=== PATIENT | female | born 1960 | race Caucasian/White ===

== ENCOUNTER 2021-06-12 07:32 | Emergency (ER) | payer OTHER ==
[2021-06-12 08:32] LABS: Absolute Lymphocytes (CBC) 1.6 K/uL (0.7-4.9); Basophils % 0.5 % (0-1.3); Hematocrit 40.4 % (36.0-45.0); Lymphocytes % 20.3 % (15.3-44.8); MPV 7.6 fL (7.6-11.3); RBC Red Blood Cell Count 4.43 M/uL (3.86-4.86)
[2021-06-12 08:38] LABS: Albumin 3.9 g/dL (3.4-5.0); Bilirubin Direct 0.1 mg/dL (0-0.2); Bilirubin Total 0.4 mg/dL (0.2-1.0); Potassium 3.8 mmol/L (3.5-5.1); Protein, Total 6.9 g/dL (6.4-8.2)
[2021-06-12] MEDS ORDERED: ONDANSETRON 4 MG/2 ML VIAL ONE (08:41)
[2021-06-12] MEDS ORDERED: MORPHINE 4 MG/ML SYR ONE (08:41)
[2021-06-12] MEDS ORDERED: NA CHLORIDE 0.9% 1,000 ML ONE (08:41)
--- NOTE | 2021-06-12 08:55 | RAD REPORT ---
EXAM DESCRIPTION: CT - Stone Protocol - 06/12/2021 8:10 am CLINICAL HISTORY: Abdominal pain. Left flank pain COMPARISON: 2015 TECHNIQUE: Computed axial tomography of the abdomen pelvis was obtained without oral or IV contrast. Lack of IV and oral contrast limits evaluation of solid organs, bowel, and vessels. Coronal reformat oskar images were obtained and reviewed. All CT scans are performed using dose optimization technique as appropriate and may include automated exposure control or mA/KV adjustment according to patient size. FINDINGS: Mild left hydronephrosis. A renal calculus is not seen. An ureteral calculus is not noted. A bladder calculus is not present. 3 millimeter bladder calculus. Additional 2 millimeter bladder ca lculus. Small hepatic cyst Spleen, pancreas and adrenals appear grossly normal There is no evidence of diverticulitis. The appendix appears normal Hysterectomy IMPRESSION: Mild left hydronephrosis and mild left hydroureter may be secondary to recently passed c alculi that now lie within the bladder
[2021-06-12 10:00] LABS: Urine Blood 3+ (Negative); Urine Glucose Negative (Negative); Urine Protein Negative (Negative)
--- NOTE | 2021-06-12 12:02 | EDPHYS ---
Physician Documentation [facility] [place] Name: Alka Spears Age: 60 yrs Sex: Female : 1960 Arrival Date: 06/12/2021 Time: 07:34 Bed 11 Private MD: Mamadou Vieyra B ED Physician Alvarado Mcknight HPI: 06/12 08:39 This 60 yrs old Female presents to ER via Ambulatory with complaints of pm1 Possible Kidney Stone. 08:39 The patient complains of pain in the left low back. Location: Left lower quadrant. pm1 Onset: The symptoms/episode began/occurred this morning. Modifying factors: The symptoms are alleviated by nothing. the symptoms are aggravated by nothing. Associated signs and symptoms: Pertinent positives: dysuria, That has improved, Pertinent negatives: fever, nausea, vomiting. Severity of pain: in the emergency department the pain has improved. The patient has experienced a previous episode, and the symptoms today are exactly the same, To prior kidney stones. The patient has been recently seen by a physician: with different complaint(s), Patient was seen by PCP for upper abdominal has been going on for multiple months. Patient got an ultrasound with incidental finding for hydronephrosis. This morning presenting with left flank pain and left groin pain that is similar to prior kidney stones. Patient reports some dysuria that started Saturday that has improved. Historical: - Allergies: 07:46 No Known Allergies; ss - Home Meds: 07:46 Lipitor 10 mg Oral tab 1 tab once daily [Active]; Estradiol Oral [Active]; ss - PMHx: 07:46 Hyperlipidemia; Hypertension; Kidney stone; ss - PSHx: 07:46 Bladder lift; hysterectomy; ss - Immunization history:: Adult Immunizations up to date, Client reports receiving the 2nd dose of the Covid vaccine. - Social history:: Smoking status: Patient denies any tobacco usage or history of. ROS: 08:39 Constitutional: Negative for fever, chills, and weight loss, Cardiovascular: Negative pm1 for chest pain, palpitations, and edema, Respiratory: Negative for shortness of breath, cough, wheezing, and pleuritic chest pain. 08:39 MS/Extremity: Negative for injury and deformity, Skin: Negative for injury, rash, and discoloration. 08:39 Abdomen/GI: Positive for abdominal pain, of the left lower quadrant, Negative for nausea, vomiting, and diarrhea. 08:39 Back: Positive for flank pain, on the left. 08:39 : Positive for burning with urination. 08:39 All other systems are negative. Exam: 08:39 Constitutional: This is a well developed, well nourished patient who is awake, alert, pm1 and in no acute distress. Head/Face: Normocephalic, atraumatic. 08:39 Skin: Warm, dry with normal turgor. Normal color with no rashes, no lesions, and no evidence of cellulitis. MS/ Extremity: Pulses equal, no cyanosis. Neurovascular intact. Full, normal range of motion. 08:39 Eyes: Exam is negative for acute changes, Periorbital structures: appear normal, Extraocular movements: intact throughout, Sclera: no acute changes, icterus, is not appreciated. 08:39 ENT: Exam is negative for acute changes, Mouth: Lips: normal, moist, Oral mucosa: normal, pink and intact, moist. 08:39 Cardiovascular: Exam negative for acute changes, Rate: tachycardic, actual rate is 103 bpm, Rhythm: Pulses: no pulse deficits are appreciated. 08:39 Respiratory: Exam negative for acute changes, respiratory distress, shortness of breath. 08:39 Abdomen/GI: Exam negative for acute changes, Inspection: abdomen appears normal, Palpation: abdomen is soft and non-tender, in all quadrants. 08:39 Back: Exam negative for acute changes, CVA tenderness. 08:39 Neuro: Exam negative for acute changes, Orientation: is normal, Mentation: is normal, Motor: is normal, moves all fours. Vital Signs: 07:44 BP 111 / 63; Pulse 103; Resp 20; Temp 97.0(TE); Pulse Ox 100% on R/A; Weight 74.84 kg; ss Height 5 ft. 4 in. (162.56 cm); Pain 8/10; 10:01 BP 97 / 60; Pulse 62; Resp 16; Pulse Ox 100% ; vg1 07:44 Body Mass Index 28.32 (74.84 kg, 162.56 cm) ss MDM: 08:14 Patient medically screened. pm1 08:14 Data reviewed: vital signs. Data interpreted: Pulse oximetry: on room air is 100 %. pm1 Interpretation: normal. 08:58 ED course: Discuss lab results and CT results with the patient, pending urine sample pm1 prior to disposition. 12:00 Counseling: I had a detailed discussion with the patient and/or guardian regarding: the pm1 historical points, exam findings, and any diagnostic results supporting the discharge/admit diagnosis, lab results, radiology results, the need for outpatient follow up, to return to the emergency department if symptoms worsen or persist or if there are any questions or concerns that arise at home. 06/12 08:00 Order name: Basic Metabolic Panel 06/12 08:00 Order name: CBC with Diff; Complete Time: 08:40 ss 06/12 08:00 Order name: Hepatic Function; Complete Time: 08:40 ss 06/12 08:00 Order name: Lipase; Complete Time: 08:40 ss 06/12 08:02 Order name: Basic Metabolic Panel; Complete Time: 08:40 EDMS 06/12 10:00 Order name: Urine Dipstick-Ancillary; Complete Time: 10:25 EDMS 06/12 08:00 Order name: IV Saline Lock; Complete Time: 08:00 ss 06/12 08:00 Order name: Labs collected and sent; Complete Time: 08:00 ss 06/12 08:00 Order name: Stone Protocol CT; Complete Time: 08:56 ss Administered Medications: 08:25 Drug: NS 0.9% 1000 ml Route: IV; Rate: 1000 ml; Site: right antecubital; ll1 09:49 Follow up: Response: No adverse reaction; IV Status: Completed infusion; IV Intake: ll1 1000ml 08:25 Drug: morphine 4 mg {Note: rass 0.} Route: IVP; Site: right antecubital; ll1 09:50 Follow up: Response: No adverse reaction; Pain is decreased; RASS: Alert and Calm (0) ll1 08:25 Drug: Zofran (Ondansetron) 4 mg Route: IVP; Site: right antecubital; ll1 09:50 Follow up: Response: No adverse reaction; RASS: Alert and Calm (0) ll1 Disposition: 15:13 Co-signature as Attending Physician, Alvarado Mcknight MD I agree with the assessment and jazmín plan of care. Disposition Summary: 06/12/21 12:01 Discharge Ordered Location: Home pm1 Problem: new pm1 Symptoms: have improved pm1 Condition: Stable pm1 Diagnosis - Kidney Stone/ Calculus in bladder pm1 Followup: pm1 - With: Emergency Department - When: As needed - Reason: Worsening of condition Followup: pm1 - With: Private Physician - When: 2 - 3 days - Reason: Recheck today's complaints, Continuance of care, Re-evaluation by your physician Discharge Instructions: - Discharge Summary Sheet pm1 - Kidney Stones pm1 - Dietary Guidelines to Help Prevent Kidney Stones pm1 Forms: - Medication Reconciliation Form pm1 - Thank You Letter pm1 - Antibiotic Education pm1 - Prescription Opioid Use pm1 Prescriptions: - Cipro 500 mg Oral Tablet - take 1 tablet by ORAL route every 12 hours for 7 days; 14 tablet; Refills: 0, pm1 Product Selection Permitted - acetaminophen-codeine 300-15 mg Oral tablet - take 2 tablet by ORAL route every 6 hours for 6 hours as needed; 12 tablet; pm1 Refills: 0, Product Selection Permitted - Zofran 4 mg Oral Tablet - take 1 tablet by ORAL route every 8 hours As needed; 12 tablet; Refills: 0, pm1 Product Selection Permitted Signatures: Dispatcher [employer] Alvarado Narvaez MD MD cha Smirch, Shelby, RN RN ss Andrew Workman, PALLAVI [employer] pm1 Eva Varner RN RN ll1
--- NOTE | 2021-06-12 12:02 | ER ---
Nurse's Notes [facility] Krist[place] Name: Alka Spears Age: 60 yrs Sex: Female : 1960 Arrival Date: 06/12/2021 Time: 07:34 Bed 11 Private MD: Mamadou Vieyra B Diagnosis: Kidney Stone/ Calculus in bladder Presentation: 06/12 07:44 Chief complaint: Patient states: L flank pain and L lower quadrant pain that began at ss 0500 this morning. PT had been having some epigastric discomfort over the past week or so, had an ultrasound which showed some mild L hydronephrosis. Denies N/V/D. HX of kidney stones. Pt reports that this feels similar. Coronavirus screen: Client denies travel out of the [place] in the last 14 days. Ebola Screen: Patient denies exposure to infectious person. Patient denies travel to an Ebola-affected area in the 21 days before illness onset. Initial Sepsis Screen: Does the patient meet any 2 criteria? No. Patient's initial sepsis screen is negative. Does the patient have a suspected source of infection? No. Patient's initial sepsis screen is negative. Risk Assessment: Do you want to hurt yourself or someone else? Patient reports no desire to harm self or others. Onset of symptoms was June 12, 2021. 07:44 Method Of Arrival: Ambulatory ss 07:44 Acuity: STEPHANIE 2 ss Historical: - Allergies: 07:46 No Known Allergies; ss - Home Meds: 07:46 Lipitor 10 mg Oral tab 1 tab once daily [Active]; Estradiol Oral [Active]; ss - PMHx: 07:46 Hyperlipidemia; Hypertension; Kidney stone; ss - PSHx: 07:46 Bladder lift; hysterectomy; ss - Immunization history:: Adult Immunizations up to date, Client reports receiving the 2nd dose of the Covid vaccine. - Social history:: Smoking status: Patient denies any tobacco usage or history of. Screenin:00 Abuse screen: Denies threats or abuse. Denies injuries from another. Nutritional ss screening: No deficits noted. Tuberculosis screening: Never had TB. Fall Risk None identified. Assessment: 08:10 Reassessment: Pt back from CT. ss 08:13 General: Appears in no apparent distress. Behavior is calm, cooperative, appropriate ll1 for age. Pain: Complains of pain in L flank Quality of pain is described as aching, Pain began 4 hours ago. Neuro: No deficits noted. Cardiovascular: No deficits noted. Respiratory: No deficits noted. GI: Abdomen is flat, Bowel sounds present X 4 quads. Abd is soft and non tender X 4 quads. Reports lower abdominal pain. : Reports L flank pain. 10:01 Reassessment: Patient appears in no apparent distress at this time. Patient and/or vg1 family updated on plan of care and expected duration. Pain level reassessed. Patient is alert, oriented x 3, equal unlabored respirations, skin warm/dry/pink. Rated Left flank pain 2/10 Patient states feeling better. 12:25 Reassessment: Patient appears in no apparent distress at this time. Patient and/or vg1 family updated on plan of care and expected duration. Pain level reassessed. Patient is alert, oriented x 3, equal unlabored respirations, skin warm/dry/pink. Patient states feeling better. Vital Signs: 07:44 BP 111 / 63; Pulse 103; Resp 20; Temp 97.0(TE); Pulse Ox 100% on R/A; Weight 74.84 kg; ss Height 5 ft. 4 in. (162.56 cm); Pain 8/10; 10:01 BP 97 / 60; Pulse 62; Resp 16; Pulse Ox 100% ; vg1 07:44 Body Mass Index 28.32 (74.84 kg, 162.56 cm) ss ED Course: 07:34 Patient arrived in ED. ds1 07:34 Mamadou Vieyra MD is Private Physician. ds1 07:46 Triage completed. ss 07:46 Arm band placed on right wrist. ss 08:00 Patient has correct armband on for positive identification. ss 08:00 Inserted saline lock: 20 gauge in right antecubital area, using aseptic technique. ss Blood collected. 08:00 Patient maintains SpO2 saturation greater than 95% on room air. ss 08:[address] In Process Unspecified. EDMS 08:12 Eva Varner RN is Primary Nurse. ll1 08:12 Patient placed in an exam room, in exam chair. ll1 08:13 Andrew Workman NP is PHCP. pm1 08:13 Donte Galeano MD is Attending Physician. pm1 08:14 Alvarado Mcknight MD is Attending Physician. pm1 10:02 No provider procedures requiring assistance completed. vg1 10:04 Primary Nurse role handed off by Eva Varner RN vg1 10:04 Halley Newell RN is Primary Nurse. vg1 12:26 IV discontinued, intact, bleeding controlled, No redness/swelling at site. Pressure vg1 dressing applied. Administered Medications: 08:25 Drug: NS 0.9% 1000 ml Route: IV; Rate: 1000 ml; Site: right antecubital; ll1 09:49 Follow up: Response: No adverse reaction; IV Status: Completed infusion; IV Intake: ll1 1000ml 08:25 Drug: morphine 4 mg {Note: rass 0.} Route: IVP; Site: right antecubital; ll1 09:50 Follow up: Response: No adverse reaction; Pain is decreased; RASS: Alert and Calm (0) ll1 08:25 Drug: Zofran (Ondansetron) 4 mg Route: IVP; Site: right antecubital; ll1 09:50 Follow up: Response: No adverse reaction; RASS: Alert and Calm (0) ll1 Intake: 09:49 IV: 1000ml; Total: 1000ml. ll1 Outcome: 12:01 Discharge ordered by MD. pm1 12:25 Discharged to home ambulatory. vg1 12:25 Condition: stable 12:25 Discharge instructions given to patient, Instructed on discharge instructions, follow up and referral plans. medication usage, Demonstrated understanding of instructions, follow-up care, medications, Prescriptions given X 3. 12:26 Patient left the ED. vg1 Signatures: Dispatcher [employer] [facility] Miley Nelson ds1 Daiana Treviño RN RN ss Marinas, Patrick, PALLAVI DIP BRAZIER pm1 Halley Newell RN RN vg1 Eva Varner, TREY RN [facility]
[2021-06-12 12:33] VITALS: TEMP 97; O2SAT 100
[2021-06-12 12:35] VITALS: BP 97/60
== END 2021-06-12 12:26 | disposition home or self-care (01) ==
LOC: ER 07:32
DX: N20.0 Calculus of kidney (principal); N21.0 Calculus in bladder; I10 Essential (primary) hypertension; E78.5 Hyperlipidemia, unspecified; Z87.442 Personal history of urinary calculi
CPT/HCPCS: 96361; 85025; 80048; 36415; 80076; 81003; 83690; 76377; 74176; 96375; 96374; 99284; J7030; J2405

== ENCOUNTER 2024-02-04 07:37 | Day surgery (SDC) | payer OTHER ==
[2024-02-04] MEDS ORDERED: FLUMAZENIL 0.1 MG/ML (5 mL VIAL) IV ONE (08:13)
[2024-02-04] MEDS ORDERED: MIDAZOLAM HCL 2 MG/2 ML INJ ONE (08:13)
[2024-02-04] MEDS ORDERED: FENTANYL CITR 100 MCG/2 ML ONE (08:13)
[2024-02-04] MEDS ORDERED: NA CHLORIDE 0.9% 500 ML ONE (08:14)
[2024-02-04] MEDS ORDERED: NALOXONE HCL 2 MG/2 ML VIAL ONE (08:14)
[2024-02-04 13:10] VITALS: BP 120/61; TEMP 96.6; O2SAT 100
--- NOTE | 2024-02-04 16:42 | RAD REPORT ---
EXAM DESCRIPTION: CT - Liver Biopsy Perc CT - 02/04/2024 9:43 am CLINICAL HISTORY: Elevated liver enzymes TECHNIQUE: Risks, benefits and alternatives to the procedure explained to the patient and informed c onsent obtained Patient was placed prone into CT suite. Conscious sedation was performed by a nurse in attendance for approximately 30 minutes. Vital signs were monitored. Skin and deeper tissues anesthetized lidocaine. Under CT guidance a 17 gauge needle was placed into the right lobe of liver. Through this an 18 gauge needle was advanced into the liver and three 2 centimeter core specimens obtained and given to path ology . Post biopsy images do not demonstrate a hematoma. Patient experienced no complication All CT scans are performed using dose optimization technique as appropriate and may include automated exposure control or mA/KV adjustment according to patient size. IMPRESSION: Core hepatic biopsies
== END 2024-02-04 12:13 | disposition home or self-care (01) ==
LOC: DS 07:37
PROVIDERS: ATTEND Internal Medicine Gastroenterology
DX: K74.01 Hepatic fibrosis, early fibrosis (principal); B18.9 Chronic viral hepatitis, unspecified; K76.9 Liver disease, unspecified; R74.8 Abnormal levels of other serum enzymes; R76.0 Raised antibody titer
CPT/HCPCS: 88313; 88307; 47000; J2250; J3010; J7040; J2310